=== PATIENT | female | born 1975 | race Caucasian/White ===

== ENCOUNTER 2022-01-06 17:54 | Emergency (ER) | payer MEDICAID, SELFPAY ==
[2022-01-06 18:05] VITALS: BP 127/56; PULSE 73; RESP 19; TEMP 37.1; O2SAT 98; BMI 25.7
--- NOTE | 2022-01-06 18:25 | EXP.UTC ---
Discharge Plan Disposition Patient Disposition: Home, Self-Care Condition: Good Prescriptions Prescriptions: New fluconazole 150 mg tablet 150 mg PO Q3D Qty: 3 0RF Rx Instructions: Take on tablet now and repeat in 72 hours, wait 72 hours then take last tablet total of 3 doses No Action fexofenadine [Allergy Relief (fexofenadine)] 180 mg tablet 180 mg PO DAILY Qty: 30 1RF Referrals Follow up/Referrals: Rodger Looney [Primary Care Provider] - See instructions Activity Restrictions/Add. Instructions Additional Instructions/Restrictions: take medication as prescribed Follow up Clinical Impressions Clinical Impression: Vaginal yeast infection Instructions Patient Instructions: Vaginal Yeast Infection Discharge ED Provider: So Kaur [facility] [place] General Stated complaint: poss yeast inf Mode of Arrival: Ambulatory Source of Information: Patient Limitations: No Limitations Time Seen by Provider: 01/06/22 18:25 Description of Symptoms (Recalled from Triage Doc. by RN): PATIENT C/O POSSIBLE YEAST INFECTION X 1 WEEK HEENT Symptoms (Recalled from RN notes): No Resp Symptoms (Recalled from RN notes): No Skin Symptoms (Recalled from RN notes): No MS Symptoms (Recalled from RN notes): No Functional Status (Recalled from RN notes): WNL History of Present Illness Provider Complaint: Patient states that she has had several yeast infections over the last couple of months States that she noticed about a week ago she felt it coming back States that she started having burning like feeling, itching and thick white discharge States that today she was still having symptoms so she came in to get something to help Related Data Previous Rx's Medication Instructions Recorded fexofenadine 180 mg tablet 180 mg PO DAILY #30 tabs 07/28/19 (Allergy Relief (fexofenadine)) fluconazole 150 mg tablet 150 mg PO Q3D #3 tabs 01/06/22 Allergies Allergy/AdvReac Type Severity Reaction Status Date / Time acetaminophen Allergy Verified 01/06/22 18:24 [From Roberta] amoxicillin Allergy Verified 07/29/19 18:01 clotrimazole Allergy Verified 07/29/19 18:01 codeine Allergy Verified 07/29/19 18:01 erythromycin base Allergy Verified 07/29/19 18:01 guaifenesin Allergy Verified 07/29/19 18:01 Penicillins Allergy Rash Verified 07/29/19 18:01 propoxyphene Allergy Verified 01/06/22 18:24 [From Darvocet-N] adhesive tape Allergy Mild Uncoded 07/04/19 19:09 rantidine Allergy Uncoded 07/04/19 19:10 Worker's Comp Is this a Worker's Comp case?: No PFSH PFSH Medical History (Updated 01/06/22 @ 18:34 by So Kaur APRN) Anxiety Asthma History of deviated nasal septum Migraine Urinary tract infection Surgical History (Updated 01/06/22 @ 18:23 by Wendy Friedman RN) History of breast augmentation History of breast lump removal Social History (Updated 01/06/22 @ 18:23 by Wendy Friedman RN) Smoking Status: Never smoker alcohol intake: never current occupational status: employed Travel in the last 8 weeks: None ROS Obtained: Yes All systems reviewed & no additional complaints except as documented and Yes Systems reviewed as appropriate & no additional complaints except as documented Constitutional Constitutional: Reports system reviewed and no additional complaints, except as documented and Reports as per HPI ENT Ears, Nose, Mouth, and Throat: Reports system reviewed and no additional complaints, except as documented and Reports as per HPI Cardiovascular Cardiovascular: Reports system reviewed and no additional complaints, except as documented and Reports as per HPI Gastrointestinal Gastrointestingal: Reports system reviewed and no additional complaints, except as documented and as per HPI Genitourinary Female Genitourinary: Reports system reviewed and no additional complaints, except as documented, Reports as per HPI, Reports vaginal discharge (describes it as thick white
[2022-01-06 19:12] VITALS: BP 127/56; PULSE 73; RESP 19; TEMP 37.1; O2SAT 98
== END 2022-01-06 19:17 | disposition home or self-care (01) ==
PROVIDERS: Emergency Provider Nurse Practitioner; PCP Pediatrics
DX: B37.3 Candidiasis of vulva and vagina (principal)
CPT/HCPCS: 99212; G0463